=== PATIENT | female | born 1970 | race Two or more races ===

== ENCOUNTER 2018-09-30 05:45 | Day surgery (SDC) | payer OTHER ==
--- NOTE | 2018-09-29 14:11 | NUR ---
[employer] used to obtained medical history with wool supplier: Rakel ID # [id number].
[~2018-09-30] VITALS: Ht 160 cm; Wt 86.2 kg
[2018-09-30] VITALS (9 sets, daily range): BP systolic 115–131; BP diastolic 65–81
[~2018-09-30 05:45] MED LIST: ADVIL200 M2 ORAL
[2018-09-30] MEDS ORDERED: ceFAZolin 1gm IVPB IVPB ONE ×2 (06:00)
[2018-09-30] MEDS ORDERED: celeBREX 200mg Cap **SURGERY PATIENTS ONLY ORAL ONE (06:00)
[2018-09-30] MEDS ORDERED: oxyCONTIN 20mg tab ORAL ONE (06:00)
--- NOTE | 2018-09-30 07:34 | Pre-Procedure Note/Attestation ---
Pre-Procedure Note/Attestation Complete Prior to Procedure Planned Procedure: right Procedure Narrative: knee arthroscopy, possible mensectomy, possible synovectomy Indications for Procedure Pre-Operative Diagnosis: right knee interal derangement Attestation I attest that I discussed the nature of the procedure; its benefits; risks and complications; and alternatives (and the risks and benefits of such alternatives ), prior to the procedure, with the patient (or the patient's legal outbound call center representative). I attest that, if there was a reasonable possibility of needing a blood transfusion, the patient (or the patient's legal outbound call center representative) was given the [facility] standardized written summary, pursuant to the Alex Fabricio Blood Safety Act ([place] Health and Safety Code # 1645, as amended). I attest that I re-evaluated the patient just prior to the surgery and that there has been no change in the patient's H&P, except as documented below: Rl Truong MD Sep 30, 2018 07:34
--- NOTE | 2018-09-30 07:34 | Operative Note - PDOC ---
Operative Note Operative Note Pre-op Diagnosis: right knee interal derangement Procedure: see op report Post-op Diagnosis: same as pre-op plus Operative Findings: consistent w/pre-op dx studies Anesthesia: MAC Specimen: none Complications: none Condition: stable Estimated Blood Loss: none Drains: none Implant(s) used?: No Rl Truong MD Sep 30, 2018 07:34
[2018-09-30] MEDS ORDERED: fentaNYL 100 mcg/2 mL IV ONE (07:47)
[2018-09-30] MEDS ORDERED: Midazolam 2mg/2ml Inj ONE (07:47)
[2018-09-30] MEDS ORDERED: Propofol 200mg/20ml IV ONE (07:48)
[2018-09-30] MEDS ORDERED: Lidocaine 1% MPF 10mg/ml 5ml ONE (07:48)
[2018-09-30] MEDS ORDERED: Ketorolac 30mg Inj ONE ×2 (07:48→08:40)
[2018-09-30] MEDS ORDERED: Morphine Sulfate PF 10 ML ONE (08:40)
[2018-09-30] MEDS ORDERED: Lidocaine 1% 10mg/ml/Epi 0.005mg/ml 30ml vial INJ ONE (08:40)
[2018-09-30] MEDS ORDERED: EPINEPHrine 1mg/1ml Amp ONE (08:40)
[2018-09-30] MEDS ORDERED: Kenalog-40 1ml Vial ONE (08:40)
[2018-09-30] MEDS ORDERED: Bupivacaine 0.25% Inj 30ml INJ ONE (08:40)
[2018-09-30] MEDS ORDERED: Duramorph PF 10mg/10ml amp IV ONE (08:53)
[2018-09-30] MEDS ORDERED: Sterile Water Irrig 1000ml IRRIG ONE (09:00)
[2018-09-30] MEDS ORDERED: NS Irrig 4000ml IRRIG ONE (09:00)
[2018-09-30] MEDS ORDERED: LR 1000ml ONE (09:00)
[2018-09-30] MEDS ORDERED: LR 1000ml 1,000 ML IVLG SCH (09:05)
--- NOTE | 2018-09-30 09:05 | Anethesia Preoperative Eval ---
Anesthesia Pre-op PMH/ROS General Date of Evaluation: Sep 30, 2018 Time of Evaluation: 08:40 Anesthesiologist: Mia ASA Score: ASA 2 Mallampati Score Class I : Soft palate, uvula, fauces, pillars visible Class II: Soft palate, uvula, fauces visible Class III: Soft palate, base of uvula visible Class IV: Only hard plate visible Mallampati Classification: Class II Surgeon: Alexi Diagnosis: R knee pain Surgical Procedure: R knee scope Anesthesia History: none Family History: no anesthesia problems Allergies: Coded Allergies: No Known Allergies (Unverified , 09/29/18) Medications: see eMAR Patient NPO?: Yes Past Medical History Cardiovascular: Denies: HTN, CAD, PA, valve dz, arrhythmia, other Pulmonary: Denies: asthma, COPD, SUSAN, other Gastrointestinal/Genitourinary: Reports: GERD - mild, other - Single kidney asymptomatic; Denies: CRI, ESRD Neurologic/Psychiatric: Denies: dementia, CVA, depression/anxiety, TIA, other Endocrine: Denies: DM, hypothyroidism, steroids, other HEENT: Denies: cataract (L), cataract (R), glaucoma, CHITIMACHA (L), CHITIMACHA (R), other Hematology/Immune: Denies: anemia, DVT, bleeding disorder, other Musculoskeletal/Integumentary: Denies: OA, RA, DJD, DDD, edema, other Other: obesity PMH Narrative: as above PSxH Narrative: x2, breast Anesthesia Pre-op Phys. Exam Physician Exam Last Vital Signs Date Time Temp Pulse Resp B/P (MAP) Pulse Ox O2 Delivery O2 Flow Rate FiO2 09/30/18 07:41 Room Air 09/30/18 07:40 97.1 72 18 119/71 99 Neurologic: CN 2-12 intact Cardiovascular: RRR Respiratory: CTA Gastrointestinal: other - obesity Airway Exam Mallampati Score: Class II MO: full Neck: short ROM: limited Teeth: missing Dentures: no upper, no lower Anesthesia Pre-op A/P Labs see chart Urine Test Test 09/30/18 06:30 Urine HCG, Qualitative Negative (NEGATIVE) Studies Pre-op Studies: EKG - NSR Risk Assessment & Plan Assessment: ASA 2 Plan: GA with LMA Status Change Before Surgery: No Pre-Antibiotics Drug: Ancef 2gr. Given Within 1 Hr of Incision: Yes Time Given: 08:55 Ralf Bellamy MD Sep 30, 2018 09:04
[2018-09-30] MEDS ORDERED: Hydromorphone 0.5mg/0.5ml inj IVP PRN (09:15)
[2018-09-30] MEDS ORDERED: DiphenhydrAMINE 50mg/ml Inj IVP PRN (09:15)
--- NOTE | 2018-09-30 09:31 | Immediate Post-Op Evaluation ---
Immediate Post-Op Evalulation Immediate Post-Op Evalulation Procedure: R knee arthroscopy meniscectomy Date of Evaluation: Sep 30, 2018 Time of Evaluation: 09:30 IV Fluids: 700 Blood Products: none Estimated Blood Loss: min Urinary Output: none Blood Pressure Systolic: 126 Blood Pressure Diastolic: 58 Pulse Rate: 76 Respiratory Rate: 20 O2 Sat by Pulse Oximetry: 99 Temperature (Fahrenheit): 97.6 Pain Score (1-10): 2 Nausea: No Vomiting: No Complications none Patient Status: reacts, patent, vomiting, none Hydration Status: adequate Ralf Bellamy MD Sep 30, 2018 09:31
[2018-09-30] MEDS ORDERED: D5 1/2NS 1,000 ML IV SCH (17:01)
[2018-09-30] MEDS ORDERED: Tylenol #3 tab (300mg/30mg) ORAL PRN (17:01)
[2018-09-30] MEDS ORDERED: HYDROmorphone 1mg/ml Carpuject SUBQ PRN (17:01)
[2018-09-30] MEDS ORDERED: Norco 5mg/325mg tab ORAL PRN (17:01)
--- NOTE | 2018-09-30 18:00 | Operative Note - Dictated ---
DATE OF OPERATION: 09/30/2018 PREOPERATIVE DIAGNOSIS: Right knee medial meniscus tear. POSTOPERATIVE DIAGNOSES: 1. Right knee medial meniscus tear. 2. Hypertrophic fat pad, medial and lateral patellofemoral compartment. 3. Grade 2 chondral damage, lateral tibial plateau. PROCEDURES: 1. Right knee diagnostic arthroscopy. 2. Right knee partial medial meniscectomy. 3. Synovectomy in lateral patellofemoral compartment. SURGEON: Rl Truong M.D. ANESTHESIA: General. INDICATION FOR PROCEDURE: The patient is a pleasant female, who has had a significant injury to both her knees. She had MRI, which showed some meniscal tear on the right knee. She failed conservative treatment and elected to undergo right knee arthroscopy and medial meniscectomy. Risks, limitations, expectations, and complications of the procedure were discussed in detail. All questions addressed. DESCRIPTION OF PROCEDURE: After informed consent was obtained, the patient was brought to the operating room. The patient was placed under monitored anesthesia control. Tourniquet was applied to right proximal thigh. Right leg was prepped and draped in sterile manner. Time-out was performed. Inferolateral stab incision was then made. Trocar was introduced into the knee joint. There was hypertrophic fat pad in the patellofemoral compartment. Medial gutter was free of any loose bodies. Medial compartment was entered. There was a complex tear of posterior horn of medial meniscus and middle body. Again, working portal was established and partial meniscectomy was performed. There was hypertophic synovial tissue anteriorly was performed. There was anterior horn of the ligamentum mucosum and the fat pad was further excised and to visualize the ACL was loose, intact. This was extended into the lateral compartment, lateral compartment was entered, and meniscus was intact. There was some grade 1 chondral damage in the anterior medial tibial plateau. Camera was repositioned in the patellofemoral compartment. Synovectomy was completed. Once that was done, visualization of patellofemoral compartment was able to be done. There was no significant chondral damage. At this point, the instruments were removed. Portal sites were closed with 3-0 Monocryl sutures. Steri-Strips and a sterile dressing were applied. ESTIMATED BLOOD LOSS: None. COMPLICATIONS: None. SPECIMENS: None. IMPLANTS: None. Rl Truong M.D. DR: STEFFANIE JOB#: [id number] CC: JENS
== END 2018-09-30 11:25 | disposition home or self-care (01) ==
LOC: SUR 05:45
DX: M23.221 Derangement of posterior horn of medial meniscus due to old tear or injury, right knee (principal); M79.4 Hypertrophy of (infrapatellar) fat pad; M94.9 Disorder of cartilage, unspecified; K21.9 Gastro-esophageal reflux disease without esophagitis; E66.9 Obesity, unspecified
CPT/HCPCS: 29881; 81025; J0171; J0690; J1885; J2250; J2274; J2704; J3010; J3301; J3490; 94003; 94150

== ENCOUNTER 2018-10-14 05:58 | Day surgery (SDC) | payer OTHER ==
[2018-10-14] VITALS (11 sets, daily range): BP systolic 117–136; BP diastolic 65–92
[~2018-10-14] VITALS: Ht 160 cm; Wt 86.2 kg
[2018-10-14] MEDS ORDERED: ceFAZolin 1gm IVPB IVPB ONE ×2 (06:00)
[2018-10-14] MEDS ORDERED: oxyCONTIN 20mg tab ORAL ONE (06:00)
[2018-10-14] MEDS ORDERED: celeBREX 200mg Cap **SURGERY PATIENTS ONLY ORAL ONE (06:00)
[2018-10-14] MEDS ORDERED: NKM (07:08)
--- NOTE | 2018-10-14 07:14 | Anethesia Preoperative Eval ---
Anesthesia Pre-op PMH/ROS General Date of Evaluation: Oct 14, 2018 Anesthesiologist: Abel ASA Score: ASA 2 Mallampati Score Class I : Soft palate, uvula, fauces, pillars visible Class II: Soft palate, uvula, fauces visible Class III: Soft palate, base of uvula visible Class IV: Only hard plate visible Mallampati Classification: Class II Surgeon: Alexi Diagnosis: Left knee torn meniscus Surgical Procedure: Left knee arthroscopy with medial meniscectomy Anesthesia History: none Family History: no anesthesia problems Allergies: Coded Allergies: No Known Allergies (Unverified , 09/29/18) Medications: see eMAR Patient NPO?: Yes NPO Date: Oct 13, 2018 NPO Time: 22:00 Past Medical History Cardiovascular: Denies: HTN, CAD, DC, valve dz, arrhythmia, other Pulmonary: Denies: asthma, COPD, SUSAN, other Gastrointestinal/Genitourinary: Reports: other - absence of 1 kidney; Denies: GERD, CRI, ESRD Neurologic/Psychiatric: Reports: depression/anxiety; Denies: dementia, CVA, TIA, other Endocrine: Denies: DM, hypothyroidism, steroids, other HEENT: Denies: cataract (L), cataract (R), glaucoma, LITTLE TRAVERSE (L), LITTLE TRAVERSE (R), other Hematology/Immune: Denies: anemia, DVT, bleeding disorder, other Musculoskeletal/Integumentary: Denies: OA, RA, DJD, DDD, edema, other Other: obesity PSxH Narrative: c/s x2 Anesthesia Pre-op Phys. Exam Physician Exam see chart Constitutional: NAD Cardiovascular: RRR Respiratory: CTA Airway Exam Mallampati Score: Class II MO: full ROM: full Teeth: intact Anesthesia Pre-op A/P Labs see chart Urine Test Test 10/14/18 06:15 Urine HCG, Qualitative Negative (NEGATIVE) Studies Pre-op Studies: EKG - sr Risk Assessment & Plan Assessment: ASA II Plan: GA Status Change Before Surgery: No Pre-Antibiotics Drug: Ancef 2g Given Within 1 Hr of Incision: Yes Marilee Rainey MD Oct 14, 2018 07:14
--- NOTE | 2018-10-14 07:42 | Operative Note - PDOC ---
Operative Note Operative Note Pre-op Diagnosis: left knee meniscus tear Procedure: see op report Post-op Diagnosis: same as pre-op plus Operative Findings: consistent w/pre-op dx studies Anesthesia: MAC Specimen: none Complications: none Condition: stable Estimated Blood Loss: none Implant(s) used?: No Rl Truong MD Oct 14, 2018 07:42
--- NOTE | 2018-10-14 07:42 | Pre-Procedure Note/Attestation ---
Pre-Procedure Note/Attestation Complete Prior to Procedure Planned Procedure: left Procedure Narrative: knee arthroscopy, medial menisectomy Indications for Procedure Pre-Operative Diagnosis: left knee meniscus tear Attestation I attest that I discussed the nature of the procedure; its benefits; risks and complications; and alternatives (and the risks and benefits of such alternatives ), prior to the procedure, with the patient (or the patient's legal welding equipment sales representative). I attest that, if there was a reasonable possibility of needing a blood transfusion, the patient (or the patient's legal welding equipment sales representative) was given the [facility] standardized written summary, pursuant to the Alex Yorklyn Blood Safety Act ([place] Health and Safety Code # 1645, as amended). I attest that I re-evaluated the patient just prior to the surgery and that there has been no change in the patient's H&P, except as documented below: Rl Truong MD Oct 14, 2018 07:42
[2018-10-14] MEDS ORDERED: Morphine Sulfate PF 10 ML ONE (08:18)
[2018-10-14] MEDS ORDERED: EPINEPHrine 1mg/1ml Amp ONE (08:18)
[2018-10-14] MEDS ORDERED: Bupivacaine 0.25% Inj 30ml INJ ONE (08:18)
[2018-10-14] MEDS ORDERED: Lidocaine 1% 10mg/ml/Epi 0.005mg/ml 30ml vial INJ ONE (08:18)
[2018-10-14] MEDS ORDERED: Kenalog-40 1ml Vial ONE (08:18)
[2018-10-14] MEDS ORDERED: Ketorolac 30mg Inj ONE ×2 (08:18→08:23)
[2018-10-14] MEDS ORDERED: fentaNYL 100 mcg/2 mL IV ONE (08:22)
[2018-10-14] MEDS ORDERED: Propofol 200mg/20ml IV ONE (08:22)
[2018-10-14] MEDS ORDERED: Midazolam 2mg/2ml Inj ONE (08:22)
[2018-10-14] MEDS ORDERED: Lidocaine 1% MPF 10mg/ml 5ml ONE (08:22)
[2018-10-14] MEDS ORDERED: Sterile Water Irrig 1000ml IRRIG ONE (08:30)
[2018-10-14] MEDS ORDERED: NS Irrig 1000ml ONE (08:30)
[2018-10-14] MEDS ORDERED: LR 1000ml ONE (08:30)
[2018-10-14] MEDS ORDERED: LR 1000ml 1,000 ML IVLG SCH (08:32)
[2018-10-14] MEDS ORDERED: fentaNYL 100 mcg/2 mL IV PRN (08:45)
[2018-10-14] MEDS ORDERED: Metoclopramide 10mg/2ml Inj IVP PRN ×2 (08:45→09:00)
[2018-10-14] MEDS ORDERED: Ketorolac 30mg Inj IV PRN (08:45)
[2018-10-14] MEDS ORDERED: LORazepam Inj 2mg/ml 1ml IV PRN (08:45)
[2018-10-14] MEDS ORDERED: Hydromorphone 0.5mg/0.5ml inj IVP PRN (08:45)
[2018-10-14] MEDS ORDERED: DiphenhydrAMINE 50mg/ml Inj IVP PRN (08:45)
[2018-10-14] MEDS ORDERED: Midazolam 2mg/2ml Inj IVP PRN (08:45)
[2018-10-14] MEDS ORDERED: Duramorph PF 10mg/10ml amp IV ONE (08:48)
--- NOTE | 2018-10-14 09:27 | Immediate Post-Op Evaluation ---
Immediate Post-Op Evalulation Immediate Post-Op Evalulation Procedure: Left knee arthroscopy with medial meniscectomy Date of Evaluation: Oct 14, 2018 Time of Evaluation: 09:29 IV Fluids: 700 Blood Products: 0 Estimated Blood Loss: min Urinary Output: 0 Blood Pressure Systolic: 118 Blood Pressure Diastolic: 75 Pulse Rate: 83 Respiratory Rate: 16 O2 Sat by Pulse Oximetry: 100 Temperature (Fahrenheit): 97.1 Pain Score (1-10): 0 Nausea: No Vomiting: No Complications 0 Patient Status: awake, reacts, patent, none Hydration Status: adequate Drug: Ancef 2g Given Within 1 Hr of Incision: Yes Marilee Rainey MD Oct 14, 2018 09:27
--- NOTE | 2018-10-14 09:28 | 48 Hour Post Anesthesia Eval ---
Post Anesthesia Evaluation Procedure: Left knee arthroscopy with medial meniscectomy Date of Evaluation: Oct 14, 2018 Airway: patent Nausea: No Vomiting: No Pain Intensity: 0 Hydration Status: adequate Cardiopulmonary Status: at baseline Mental Status/LOC: patient returned to baseline Post-Anesthesia Complications: 0 Follow-up care needed: ready to discharge Marilee Rainey MD Oct 14, 2018 09:28
[2018-10-14] MEDS ORDERED: Tylenol #3 tab (300mg/30mg) ORAL PRN (17:01)
[2018-10-14] MEDS ORDERED: HYDROcodone/Acetamin 5/325 tab ORAL PRN (17:01)
[2018-10-14] MEDS ORDERED: D5 1/2NS 1,000 ML IV SCH (17:01)
[2018-10-14] MEDS ORDERED: Hydromorphone 0.5mg/0.5ml inj SUBQ PRN (17:01)
--- NOTE | 2018-10-14 17:02 | Operative Note - Dictated ---
DATE OF OPERATION: 10/14/2018 PREOPERATIVE DIAGNOSIS: Left knee internal derangement secondary meniscus tear. POSTOPERATIVE DIAGNOSES: 1. Left knee medial meniscus tear. 2. Left knee grade 2 chondral damage, medial femoral condyle. 3. Hypertrophic fat pad/synovial tissue. PROCEDURES: 1. Left knee arthroscopic partial medial meniscectomy. 2. Gentle chondroplasty, medial femoral condyle. 3. Synovectomy/excision of fat pad, medial and lateral patellofemoral compartment. SURGEON: Rl Truong M.D. ANESTHESIA: General. INDICATION FOR PROCEDURE: The patient is a pleasant 48-year-old female with significant injury to left knee, had MRI, which showed meniscus tear. She failed conservative treatment, elected to undergo left knee arthroscopic medial meniscectomy. Risks, limitations, expectations, complications of procedure were discussed in detail. All questions addressed. DESCRIPTION OF PROCEDURE: After informed consent was obtained, the patient was brought to the operating room. The patient was placed under general anesthesia. Left leg was prepped and draped in a sterile manner. Time-out was performed. Ancef was administered. Inferolateral stab incision was then made. Trocar was introduced into the knee joint. Hypertrophic fat pad and synovial tissue making visualization of patellofemoral compartment somewhat difficult, the compartment was entered. There was complex tear of posterior horn of medial meniscus and medial working portal was established. Partial meniscectomy was performed. There was grade 2 chondral damage of medial femoral condyle. Gentle chondroplasty was performed. Excision of the fat pad and synovial tissue was completed. The anterior compartment and anterior horn of the meniscus was noted to be intact. The camera was then positioned in the intercondylar notch for the debridement of fat pad and the ligamentum mucosa was performed. ACL was probed and noted to be intact. Lateral compartment was free of any meniscal chondral damage. Camera was then placed in the patellofemoral compartment. Excision of fat pad and synovectomy was completed. Instruments were removed. Portal sites were closed with 3-0 Monocryl sutures. Steri-Strips and a sterile dressing were applied. The patient was awoken and taken to recovery room with stable vital signs. ESTIMATED BLOOD LOSS: None. COMPLICATIONS: None. SPECIMENS: None. IMPLANTS: None. Rl Truong M.D. DR: STEFFANIE JOB#: [id number] CC: JENS
== END 2018-10-14 11:30 | disposition home or self-care (01) ==
LOC: SUR 05:58
DX: S83.242A Other tear of medial meniscus, current injury, left knee, initial encounter (principal); M24.10 Other articular cartilage disorders, unspecified site; M67.262 Synovial hypertrophy, not elsewhere classified, left lower leg; Z90.5 Acquired absence of kidney; F32.9 Major depressive disorder, single episode, unspecified; F41.9 Anxiety disorder, unspecified; X58.XXXA Exposure to other specified factors, initial encounter; Y92.9 Unspecified place or not applicable
CPT/HCPCS: 29876; 81025; J0171; J0690; J1885; J2250; J2274; J2704; J3010; J3301; J3490; 94003; 94150